=== PATIENT | female | born 1985 | race Caucasian/White ===

== ENCOUNTER 2023-06-12 11:47 | Emergency (ER) | payer OTHER ==
[~2023-06-12] VITALS: Ht 167.6 cm; Wt 61.2 kg
[2023-06-12 11:58] VITALS: BP 134/77; TEMP 98.8; O2SAT 100
[2023-06-12] MEDS ORDERED: HYDROCODONE/APAP 5/325MG TABLET ONE (13:26)
[2023-06-12] MEDS: HYDROCODONE/APAP 5/325MG TABLET PO ONE (13:29)
[2023-06-12] MEDS ORDERED: HYDR-4303 PO (14:41)
[2023-06-12] MEDS ORDERED: DOXY100C2 PO (14:41)
[2023-06-12] MEDS ORDERED: IBUP-1955 PO (14:41)
[2023-06-12] MEDS ORDERED: AMOX-430 PO (14:41)
== END 2023-06-12 15:10 | disposition home or self-care (01) ==
LOC: ER 11:54
DX: L03.221 Cellulitis of neck (principal); L02.11 Cutaneous abscess of neck; Z79.899 Other long term (current) drug therapy; Z60.2 Problems related to living alone
CPT/HCPCS: 99284; A6403